=== PATIENT | female | born 1980 | race Caucasian/White ===

== ENCOUNTER → 2021-07-05 10:06 | Outpatient (CLI) | payer OTHER, SELFPAY ==
[2021-07-05 14:45] LABS: COVID19 -Nasal RAPID Negative (Negative)
== END ==
PROVIDERS: PCP Student in an Organized Health Care Education/Training Program; Visit Provider Specialist
DX: Z01.812 Encounter for preprocedural laboratory examination (principal); Z20.822 Contact with and (suspected) exposure to COVID-19
CPT/HCPCS: 87635

== ENCOUNTER 2021-07-08 12:20 | Day surgery (SDC) | payer OTHER, SELFPAY ==
[2021-07-05 08:13] VITALS: BMI 28.7
[2021-07-08] VITALS (7 sets, daily range): BP systolic 108–123; BP diastolic 48–75; PULSE 50–60; RESP 8–16; TEMP 36–36.9; O2SAT 95–100; BMI 28.7
--- NOTE | 2021-07-08 | PATH_ITS ---
[facility] Accession Number: [id number] . 01 Material submitted: . uterus - UTERUS AND BILATERAL TUBES . 02 Diagnosis: Uterus, Bilateral Tubes, Hysterctomy and Bilateral Salpingectomy: 1. Noncycling endometrium with focal glandular and stromal breakdown. 2. Bilateral fallopian tubes. 3. No evidence of endometriosis, neoplasia or hyperplasia. [facility] 07/15/2021 1413 Local . 02 Electronically signed: . Evon Moncada MD, Pathologist NPI- [id number] . 01 Gross description: . The specimen is received in formalin, labeled uterus and bilateral tubes, and consists of a supracervical uterus weighing 50 grams, measuring 5.8 cm from fundus to cervical stump, 5.2 cm from cornu to cornu, and 4.3 cm from anterior to posterior, with attached fimbriated right fallopian tube (6.0 x 0.5 cm) and attached fimbriated left fallopian tube (6.7 x 0.5 cm). The uterus is received surgically partially transected, with an intact lateral aspect. The endometrium is pale sahni to red-brown and unremarkable, with an average thickness of 0.1 cm. Sectioning reveals grossly unremarkable myometrium with an average thickness of 1.5 cm. The fallopian tubes upon sectioning exhibit stellate patent lumens, with no identifiable abnormalities. The cervix was not received with the specimen. The specimen is representatively submitted as follows: . A1: Entire fimbria of right fallopian tube and education courses sales representative cross sections. A2: Entire fimbria of left fallopian tube with education courses sales representative cross sections. A3: Anterior endomyometrium, full thickness rep. A4: Posterior endomyometrium, full thickness rep. ([id number]) A5: Additional education courses sales representative sections of anterior endometrium. A6: Additional education courses sales representative sections of posterior endometrium. ([id number]) /[facility] 07/13/2021 [facility] Local . 02 Pathologist provided ICD-10: N92.0 . 02 CPT . 575449 Specimen Comment: A courtesy copy of this report has been sent to [phone] Performed at: 01 [facility] Cytology [address] [id number] MD Onel Camacho MD Phone: [phone] Performed at: 02 [facility] [address] [place], [place] [id number] MD Evon Moncada MD Phone: [phone]
--- NOTE | 2021-07-08 13:13 | PM.PREOP ---
Pre-operative Note COVID-19 COVID-19 status: Negative Result date/Date tested (Pos, Neg/Pending): 07/05/21 Criteria for continued procedure: Expected advancement of disease process Interval Note History & Physical reviewed/Exam performed by Physician: Yes Changes to H&P: No
[2021-07-08] MEDS: LACTATED RINGERS 1,000 ML 100 ML IV (13:28)
[2021-07-08] MEDS: CLINDAMYCIN 900 MG/50 ML PIGGYBACK 50 MG IV (14:12)
--- NOTE | 2021-07-08 14:25 | SUR.OPER ---
Lithotomy on padded OR bed. Veguita Pad Positioner under torso. Head on pillow, arms padded and tucked at sides. Legs secured in padded yellow fins stirrups.
[2021-07-08] MEDS: BUPIVACAINE 0.5% (PF) 30 ML, EPINEPHrine 0.15 MG INJ (14:51)
[2021-07-08] MEDS: ROPIVACAINE 0.2% PF 2 MG/ML 10ML AMP 20 ML INJ (14:56)
--- NOTE | 2021-07-08 15:24 | PM.OP.1 ---
Operative Date/Time/Diagnoses Date of procedure: 07/08/21 Time of procedure: 15:24 Pre-op diagnosis: Menorrhagia Post-op diagnosis: same Procedure & Clinicians Procedure: Laparoscopic supracervical hysterectomy with bilateral salpingectomies Same procedure as scheduled: Yes Indications: Menorrhagia Surgeon: Laura Steen Cathodic Protection Technician: María Mi Click Yes if Unassisted: No Anesthesia Type: General Operative Notes Findings: Normal appearing uterus, tubes, ovaries. No scar tissue. No endometriosis. Normal appearing bowel surface and appendix. Normal appearing liver edge. No internal hernias. Closure Type: primary Specimen(s): other (Uterus not including the cervix and bilateral fallopian tubes) Estimated Blood Loss (mL): 5 Blood products transfused: none Procedure in detail: Patient is brought to the operating room where she underwent general anesthesia and placed in low [facility] stirrups. She was prepped and draped in the usual sterile fashion. A check list was reviewed with the staff in the room prior to beginning of the case. Patient had pulsatile stockings in place and functional. 900 mg of clindamycin were in prior to beginning of the case.. A Montes catheter was placed. A single-tooth tenaculum was placed on the anterior lip of the cervix and the cervix dilated to a #6 Hegar dilator. The uterine manipulator was placed through the cervix into the uterus with the balloon inflated with 3 mL of air. The area of the umbilical incision and the 5 mm right and left lower quadrant incisions were injected with Marcaine. An incision was made with scalpel. The verries needle was placed into the abdomen and confirmed in the appropriate place with withdrawal on a syringe and then free flow of fluid down through the needle. The abdomen was insufflated with CO2. The needle was removed and a 5 mm trocar placed without difficulty. There did not appear to be any damage is placement of the trocar. The right and left lower quadrant incisions were made with the scalpel and the trochars placed without damage to internal structures. The power beat forceps were used to cauterize along the mesosalpinx followed by the round ligaments on both sides. Sequential bites were taken down the broad ligaments. The uterine arteries were cauterized. An incision was made above the level bladder pushing the bladder away from the cervix. The SANAZ loop was placed around the uterus and the uterus was amputated above the level of the bladder. Bleeding was controlled with the monopolar forceps. The monopolar cautery was used to cauterize in the endocervical canal. A supracervical incision was made and an 12 mm port placed. A 15 mm Endo Catch bag was placed in the abdomen. The uterus, tubes and ovaries were placed in the bag and brought up through the suprapubic port site. The Duane O was placed. The uterus was hand morselized. The abdomen was reinsufflated and adequate hemostasis was noted. 20 cc of ropivacaine was placed over the cervix. Trochars were removed and the CO2 allowed escape from the abdomen. The fascia layer of the suprapubic site was repaired with 0 Polysorb suture. Skin was closed with 4-0 Monocryl suture at the suprapubic site and the other 3 sites. The patient went to recovery room in good condition. Counts of instruments and sponges were correct. Dr. Mi was present throughout the case to assist with holding the camera, retracting, cauterizing and cutting the structures on the left side of the patient, as well as assisting with morselization of the uterus. Complications: none Post-operative Condition: stable Disposition: same day surgery Plan for aftercare: Home when awake and stable.
--- NOTE | 2021-07-08 15:52 | SUR.PHASEII ---
Pt from PACU I in bed. Alert, oriented, denies pain and taking ice chips. Now tolerating cranberry juice.
== END 2021-07-08 16:27 | disposition home or self-care (01) ==
LOC: OR 12:23 → AC 12:25
PROVIDERS: PCP Student in an Organized Health Care Education/Training Program; Referring Provider Specialist; Visit Provider Specialist
PROC: 0UT94ZL Resection of Uterus, Supracervical, Percutaneous Endoscopic Approach (ICD-10-PCS; CPT 58542; principal; 2021-07-08 13:30)
DX: N92.0 Excessive and frequent menstruation with regular cycle (principal); Z72.0 Tobacco use
CPT/HCPCS: 58542; 81025; J0171; J0330; J1100; J1170; J2405; J2704; J2795; J3010

== ENCOUNTER 2023-02-25 07:23 | Day surgery (SDC) | payer OTHER, SELFPAY ==
--- NOTE | 2023-02-25 | PATH_ITS ---
[facility] Accession Number: [id number] No. of containers..01 Tissue . 01 Material submitted: . colon - RANDOM COLON . 01 Diagnosis: Random Colon, Biopsy: Colonic mucosa with no diagnostic abnormality. Negative for active, chronic, and microscopic colitis. Negative for dysplasia and malignancy. [facility] 03/06/2023 1118 Local . 01 Electronically signed: . Luisa Wilson MD, Pathologist NPI- [id number] . 01 Gross description: . RANDOM COLON : Received in formalin is multiple fragment(s) of sahni, soft tissue measuring 0.7 x 0.4 x 0.1 cm in aggregate submitted entirely in 1 cassette(s) /[facility] 02/26/2023 0444 Local . 01 Pathologist provided ICD-10: R10.32 . 01 CPT . 932370 Specimen Comment: A courtesy copy of this report has been sent to [phone] Performed at: 01 [facility] [address] [place] [address] [address], [place], [place] [id number] MD Onel Camacho MD Phone: [phone]
[2023-02-25 07:40] VITALS: BMI 31.5
[2023-02-25 07:44] VITALS: BP 159/91; PULSE 71; RESP 12; TEMP 36.4; O2SAT 99
[2023-02-25] MEDS: LACTATED RINGERS 1,000 ML 42 ML IV (07:51)
--- NOTE | 2023-02-25 08:33 | PM.HP.1 ---
History of Present Illness History of Present Illness Date Patient Seen: 02/25/23 Chief complaint: Dx Colonoscopy w/poss bx Narrative: Abnormal CT scan showing possible sigmoid wall thickening [facility] Surgical History (Updated 07/12/21 @ 16:56 by Laura Steen MD) Edgar teeth removed (1997) Social History household members: spouse Smoking Status: Current every day smoker alcohol intake: current Meds Home Medications and Allergies Home Medications Medication Instructions Recorded Confirmed Type lactobacillus combination no.4 3 3,000 mmu cells PO DAILY 07/08/21 02/25/23 History billion cell capsule (Probiotic) multivitamin 1 tab PO DAILY 07/08/21 02/25/23 History omega-3 fatty acids 1,000 mg PO BID 07/08/21 02/25/23 History Allergies Allergy/AdvReac Type Severity Reaction Status Date / Time clindamycin Allergy 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 Risks, benefits, alternatives have been explained.
--- NOTE | 2023-02-25 08:34 | PM.OP.COLON ---
Operative Date/Time/Diagnoses Date of procedure: 02/25/23 Pre-op diagnosis: See indication and findings Procedure & Clinicians Study performed: Colonoscopy Indications: Abnormal CT scan Surgeon: Kamari Doan Procedure Notes Procedure in detail: after informed consent was obtained the patient was placed in the left lateral decubitus position. The video colonoscope was introduced the rectum slowly advanced to the cecum. On slow withdrawal mucosa was carefully examined. The scope was removed. The patient tolerated procedure well. Blood loss none Complications none Sedation mac Findings 1. Somewhat pedunculated lesion at 15 cm with completely normal overlying mucosa. This had a ?pillow sign? on manipulation with forceps. 2. Random biopsies taken 3. 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 It easily prolapses back and forth. She will follow up on a as needed basis. She will need follow-up colonoscopy in 10 years.
[2023-02-25 08:58] VITALS: BP 101/71; PULSE 84; RESP 15; TEMP 37.1; O2SAT 96
[2023-02-25 09:03] VITALS: BP 106/75; PULSE 93; RESP 13; O2SAT 98
[2023-02-25 09:09] VITALS: BP 114/65; PULSE 83; RESP 16; TEMP 37.1; O2SAT 100
[2023-02-25 09:15] VITALS: BP 124/91; PULSE 78; RESP 12; O2SAT 100
== END 2023-02-25 09:47 | disposition home or self-care (01) ==
PROVIDERS: PCP Student in an Organized Health Care Education/Training Program; Referring Provider Internal Medicine Gastroenterology; Visit Provider Internal Medicine Gastroenterology
PROC: 0DJD8ZZ Inspection of Lower Intestinal Tract, Via Natural or Artificial Opening Endoscopic (ICD-10-PCS; CPT 45378; principal; 2023-02-25 08:30)
DX: R93.3 Abnormal findings on diagnostic imaging of other parts of digestive tract (principal)
CPT/HCPCS: 43239; J2704

== ENCOUNTER → 2023-07-03 16:00 | Outpatient (CLI) | payer OTHER, SELFPAY ==
--- NOTE | 2023-07-03 | DI.MRI.S_ITS ---
PROCEDURE: MR LUMBAR SPINE WO CON INDICATIONS: Spinal stenosis, lumbar region TECHNIQUE: Noncontrast sagittal T1 spin echo and T2 fast echo, sagittal STIR, and T2 fast spin echo through the lumbar spine. In cases with scoliosis, additional coronal T2 fast spin echo may be performed. COMPARISON: [facility] Outside Film, MR, MR LUMBAR SPINE WITHOUT CONTRAST, 12/18/2021, 8:26 (images only, no report. [facility] Outside Film, CT, CT ABDOMEN PELVIS WITH CONTRAST, 09/05/2022, 14:29. FINDINGS: Image quality: Excellent. Alignment and Curvature: There is normal bony alignment. Bone Marrow: Marrow is of normal overall signal. No acute vertebral body compression fractures. Spinal Cord: Conus medullaris terminates at the T12-L1 level. Visualized cord demonstrates normal signal and size. Paraspinous Soft Tissues: No paravertebral masses. T12-L1: Normal appearance. L1-L2: Normal appearance. L2-L3: The disc height and disk signal are relatively well-preserved. Mild generalized disc bulge is seen. Mild facet joint hypertrophy is seen. There is moderate left-sided and mild left-sided neural foraminal narrowing. No central canal narrowing is seen. There was previously a central disc protrusion, which has largely regressed since 2021. L3-L4: The disc height and disk signal are well-preserved. Mild generalized disc bulge is seen. Mild facet joint hypertrophy is seen. No significant neural foraminal or central canal narrowing can be seen. L4-L5: Mild loss of disc height is seen. Loss of disc signal is seen. Mild generalized disc bulge is seen. There is a superimposed central disc protrusion. There is a focal annular fissure seen posteriorly. Mild facet joint hypertrophy is seen. Moderate bilateral neural foraminal narrowing is seen. Mild central canal narrowing is seen. When comparison is made with the prior images, these findings are similar. L5-S1: No significant abnormality is seen. IMPRESSION: Lumbar spine degenerative changes are seen, with improvement in a disc protrusion at L2-L3 compared to 2021. Dictated by: Phil Combs M.D. on 07/03/2023 at 16:40 Approved by: Phil Combs M.D. on 07/03/2023 at 16:44
== END ==
PROVIDERS: PCP Student in an Organized Health Care Education/Training Program; Referring Provider Physical Medicine & Rehabilitation Pain Medicine; Visit Provider Physical Medicine & Rehabilitation Pain Medicine
DX: M48.062 Spinal stenosis, lumbar region with neurogenic claudication (principal); M47.816 Spondylosis without myelopathy or radiculopathy, lumbar region
CPT/HCPCS: 72148